=== PATIENT | male | born 2000 | race Two or more races ===

== ENCOUNTER 2023-05-09 12:05 | Emergency (ER) | payer BC, SELFPAY ==
[2023-05-09 12:12] VITALS: BP 142/74; PULSE 57; RESP 20; TEMP 36.9; O2SAT 99; BMI 23.7
--- NOTE | 2023-05-09 12:21 | XR_ITS ---
The [address] [address] Patient Name: FREDA NOLASCO MRN: [id number] date: 2000 Sex: M Assigned Patient Location: ER Current Patient Location: ER Accession/Order Number: [id number] Exam Date: 05/09/2023 12:27 Report Date: 05/09/2023 12:42 At the request of: BILL MORTON Procedure: XR chest 1V EXAMINATION: XR chest 1V HISTORY: chest pain , shortness of breath; intermittent symptoms for several weeks COMPARISON: No relevant comparison available. FINDINGS: LUNGS: No significant pulmonary parenchymal abnormalities. VASCULATURE: No increased pulmonary vasculature. PLEURA: No pneumothorax, effusion, or pleural thickening. CARDIAC: No cardiomegaly or cardiac silhouette abnormality. MEDIASTINUM: No visible mass or adenopathy. BONES: No fracture or visible bone lesion. OTHER: Negative. XR/XR chest 1V IMPRESSION: 1. Normal chest. Electronically authenticated by: LINDA ROTH Date: 05/09/2023 12:42
--- NOTE | 2023-05-09 12:22 | ECG_ITS ---
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
--- NOTE | 2023-05-09 13:32 | ED.CHESTPAI1 ---
Documented by User: VALERIE Rojo 05/09/23 14:31 HPI - Chest Pain General Chief Complaint: Chest Pain Stated Complaint: CHEST PAINS/SOB Time Seen by Provider: 05/09/23 13:11 Source: patient Mode of arrival: walk-in Limitations: no limitations History of Present Illness HPI narrative: patient is a 22-year-old male who presents to the emergency department for the evaluation of chest pain that has been intermittent for the last two weeks. He states he usually has an episode of chest pain daily or every other day. He states it typically lasts 5-10 minutes. He states sometimes he feels the chest pain when he is lying down, sometimes when he is moving and yesterday he felt chest pain while he was driving. He states when it occurs he does feel short of breath. He describes it as a tightness across the entire chest. He has had no fevers, chills, nausea, vomiting. He denies any peripheral edema to the arms or legs. He denies dizziness, syncope. He has no history of heart or lung problems. He states he starts football camp in a couple weeks and wanted to be evaluated. He is not a smoker. No recent surgeries or procedures. He has no chest pain at this time. Risk Factors Coronary artery disease risk factors: none Related Data Home Medications Medication Instructions Recorded Confirmed No Known Home Medications 05/09/23 05/09/23 Allergies Allergy/AdvReac Type Severity Reaction Status Date / Time No Known Drug Allergies Allergy Verified 05/09/23 12:14 Review of Systems ROS Constitutional Denies: fever or chills Ears, nose, mouth, and throat Denies: throat pain Cardiovascular Reports: chest pain; Denies: edema Respiratory Reports: shortness of breath; Denies: cough or coughing up blood Gastrointestinal Denies: nausea or vomiting Musculoskeletal Denies: back pain or neck pain Integumentary/Breast Denies: rash Endocrine Denies: excessive urination PFSH PFSH Social History Smoking status: Never smoker Exam Narrative Exam Narrative: Gen.: Awake, alert, in no distress Head: Normocephalic, atraumatic ENT: Moist mucous membranes Respiratory: No respiratory distress, lungs clear bilaterally Cardio: Regular rate and rhythm, no murmurs noted Extremities: Moves extremities equally, no pedal edema Psych: Normal mood and affect Neuro: No focal neuro deficit Skin: Warm, dry, intact Constitutional Vital Signs, click to edit/add: Last Vital Signs Temp 98.4 F 05/09/23 12:12 Pulse 57 L 05/09/23 12:12 Resp 20 05/09/23 12:12 BP 142/74 H 05/09/23 12:12 Pulse Ox 99 05/09/23 12:12 O2 Del Method Room Air 05/09/23 12:12 Course Vital Signs Vital signs: Vital Signs Temperature 98.4 F 05/09/23 12:12 Pulse Rate 57 L 05/09/23 12:12 Respiratory Rate 20 05/09/23 12:12 Blood Pressure 142/74 H 05/09/23 12:12 Pulse Oximetry 99 05/09/23 12:12 Oxygen Delivery Method Room Air 05/09/23 12:12 Temperature 98.4 F 05/09/23 12:12 Pulse Rate 57 L 05/09/23 12:12 Respiratory Rate 20 05/09/23 12:12 Blood Pressure 142/74 H 05/09/23 12:12 Pulse Oximetry 99 05/09/23 12:12 Oxygen Delivery Method Room Air 05/09/23 12:12 MDM - Chest Pain MDM Narrative Medical decision making narrative: patient with no PE risk factors, no active chest pain in the emergency department. His chest x-ray and EKG are unremarkable, labs studies are normal. Patient will be given a cardiology referral as needed, if he develops any dizziness, syncope he should be reevaluated for his chest pain. Return to the Emergency Room if symptoms change or worsen. Medical Records Data Attestation: I reviewed the patient's medical records. Lab Data Attestation: I reviewed the patient's lab results. Labs: Lab Results 05/09/23 Range/Units 13:39 WBC 6.3 (4.0-11.0) 10^3/uL RBC 5.41 (4.70-6.10) 10^6/uL Hgb 15.5 (14.0-18.0) g/dL Hct 46.1 (42.0-54.0) % MCV 85.2 (80.0-94.0) fL MCH 28.7 (25.9-34.0) pg MCHC 33.6 (29.9-35.2) g/dL RDW 11.9 (11.0-15.0) % Plt Count 302 (150-450) 10^3/uL MPV 9.4 L (9.5-13.5) fL Neut % (Auto) 55.8 (43.0-75.0) % Lymph % (Auto) 25.3 (20.5-60.0) % [place] % (Auto) 7.9 (1.7-12.0) % Eos % (Auto) 10.0 H (0.9-7.0) % Baso % (Auto) 0.8 (0.2-2.0) % Neut # (Auto) 3.5 (1.4-6.5) 10^3/uL Lymph # (Auto) 1.6 (1.2-3.8) 10^3/uL [place] # (Auto) 0.5 (0.3-0.8) 10^3/uL Eos # (Auto) 0.6 (0.0-0.7) 10^3/uL Baso # (Auto) 0.1 (0.0-0.1) 10^3/uL Abs Immat Gran (auto) 0.01 (0.00-0.03) 10^3/uL Imm/Tot Granulo (auto) 0.2 (0.0-0.5) % Sodium 136 (136-145) mmol/L Potassium 3.9 (3.5-5.1) mmol/L Chloride 101 (98-107) mmol/L Carbon Dioxide 29.0 (21.0-32.0) mmol/L Anion Gap 9.9 BUN 15.0 (7.0-18.0) mg/dL Creatinine 1.25 (0.70-1.30) mg/dL Est GFR ( Amer) >60 (>=60) Est GFR (Non-Af Amer) >60 (>=60) BUN/Creatinine Ratio 12.0 Glucose 97 (74-106) mg/dL Calcium 9.2 (8.5-10.1) mg/dL Total Bilirubin 0.4 (0.2-1.0) mg/dL AST 16 (15-37) U/L ALT 29 (16-63) U/L Alkaline Phosphatase 91 (46-116) U/L Total Protein 7.5 (6.4-8.2) g/dL Albumin 4.0 (3.4-5.0) g/dL Globulin 3.5 g/dL Albumin/Globulin Ratio 1.1 TSH 0.938 (0.358-3.740) uIU/mL Imaging Data Chest x-ray: Attestation: I have reviewed the pertinent imaging results. Radiologist's impression: Procedure: XR chest 1V EXAMINATION: XR chest 1V HISTORY: chest pain , shortness of breath; intermittent symptoms for several weeks COMPARISON: No relevant comparison available. FINDINGS: LUNGS: No significant pulmonary parenchymal abnormalities. VASCULATURE: No increased pulmonary vasculature. PLEURA: No pneumothorax, effusion, or pleural thickening. CARDIAC: No cardiomegaly or cardiac silhouette abnormality. MEDIASTINUM: No visible mass or adenopathy. BONES: No fracture or visible bone lesion. OTHER: Negative. IMPRESSION: 1. Normal chest. Electronically authenticated by: LINDA ROTH Date: 05/09/2023 12:42 ECG Data Attestation: I personally reviewed and interpreted this ECG as follows: (normal sinus rhythm at a rate of eighty-one, sinus arrhythmia noted with no acute ST elevation or ectopy. EKG reviewed by attending physician) ECG interpretation date: 05/09/23 ECG interpretation time: 13:35 Discharge Plan Discharge Chief Complaint: Chest Pain Clinical Impression: Chest pain Patient Disposition: Home, Self-Care Time of Disposition Decision: 14:29 Condition: Good Prescriptions / Home Meds: No Action No Known Home Medications Instructions: Chest Pain (ED) Additional Instructions: Follow up with [facility] cardiology ([phone]) if symptoms persist or worsen, if you develop dizziness or pass out with the chest pain, you need to be reevaluated Stand Alone Forms: Portal Instructions Referrals: Germaine Whitley MD [Primary Care Provider] - 1 week Discharge Date/Time: 05/09/23 14:55 Documented by User: Landen Purdy MD 05/09/23 19:22 HPI - Chest Pain General Chief Complaint: Chest Pain Stated Complaint: CHEST PAINS/SOB Time Seen by Provider: 05/09/23 13:11 Related Data Home Medications Medication Instructions Recorded Confirmed No Known Home Medications 05/09/23 05/09/23 Allergies Allergy/AdvReac Type Severity Reaction Status Date / Time No Known Drug Allergies Allergy Verified 05/09/23 12:14 [facility] Social History Smoking status: Never smoker Exam Constitutional Vital Signs, click to edit/add: Last Vital Signs Temp 98.4 F 05/09/23 12:12 Pulse 57 L 05/09/23 12:12 Resp 20 05/09/23 12:12 BP 142/74 H 05/09/23 12:12 Pulse Ox 99 05/09/23 12:12 O2 Del Method Room Air 05/09/23 12:12 Course Vital Signs Vital signs: Vital Signs Temperature 98.4 F 05/09/23 12:12 Pulse Rate 57 L 05/09/23 12:12 Respiratory Rate 20 05/09/23 12:12 Blood Pressure 142/74 H 05/09/23 12:12 Pulse Oximetry 99 05/09/23 12:12 Oxygen Delivery Method Room Air 05/09/23 12:12 Temperature 98.4 F 05/09/23 12:12 Pulse Rate 57 L 05/09/23 12:12 Respiratory Rate 20 05/09/23 12:12 Blood Pressure 142/74 H 05/09/23 12:12 Pulse Oximetry 99 05/09/23 12:12 Oxygen Delivery Method Room Air 05/09/23 12:12 MDM - Chest Pain MDM Narrative Medical decision making narrative: patient with no PE risk factors, no active chest pain in the emergency department. His chest x-ray and EKG are unremarkable, labs studies are normal. Patient will be given a cardiology referral as needed, if he develops any dizziness, syncope he should be reevaluated for his chest pain. Return to the Emergency Room if symptoms change or worsen. I, Dr Purdy, have reviewed the above progress note and course of action in the ER; agree with the above. I have personally seen and evaluated this patient, gone over history and physical, and discussed disposition and treatment plan with the patient. Lab Data Labs: Lab Results 05/09/23 Range/Units 13:39 WBC 6.3 (4.0-11.0) 10^3/uL RBC 5.41 (4.70-6.10) 10^6/uL Hgb 15.5 (14.0-18.0) g/dL Hct 46.1 (42.0-54.0) % MCV 85.2 (80.0-94.0) fL MCH 28.7 (25.9-34.0) pg MCHC 33.6 (29.9-35.2) g/dL RDW 11.9 (11.0-15.0) % Plt Count 302 (150-450) 10^3/uL MPV 9.4 L (9.5-13.5) fL Neut % (Auto) 55.8 (43.0-75.0) % Lymph % (Auto) 25.3 (20.5-60.0) % [place] % (Auto) 7.9 (1.7-12.0) % Eos % (Auto) 10.0 H (0.9-7.0) % Baso % (Auto) 0.8 (0.2-2.0) % Neut # (Auto) 3.5 (1.4-6.5) 10^3/uL Lymph # (Auto) 1.6 (1.2-3.8) 10^3/uL [place] # (Auto) 0.5 (0.3-0.8) 10^3/uL Eos # (Auto) 0.6 (0.0-0.7) 10^3/uL Baso # (Auto) 0.1 (0.0-0.1) 10^3/uL Abs Immat Gran (auto) 0.01 (0.00-0.03) 10^3/uL Imm/Tot Granulo (auto) 0.2 (0.0-0.5) % Sodium 136 (136-145) mmol/L Potassium 3.9 (3.5-5.1) mmol/L Chloride 101 (98-107) mmol/L Carbon Dioxide 29.0 (21.0-32.0) mmol/L Anion Gap 9.9 BUN 15.0 (7.0-18.0) mg/dL Creatinine 1.25 (0.70-1.30) mg/dL Est GFR ( Amer) >60 (>=60) Est GFR (Non-Af Amer) >60 (>=60) BUN/Creatinine Ratio 12.0 Glucose 97 (74-106) mg/dL Calcium 9.2 (8.5-10.1) mg/dL Total Bilirubin 0.4 (0.2-1.0) mg/dL AST 16 (15-37) U/L ALT 29 (16-63) U/L Alkaline Phosphatase 91 (46-116) U/L Total Protein 7.5 (6.4-8.2) g/dL Albumin 4.0 (3.4-5.0) g/dL Globulin 3.5 g/dL Albumin/Globulin Ratio 1.1 TSH 0.938 (0.358-3.740) uIU/mL Discharge Plan Discharge Chief Complaint: Chest Pain Clinical Impression: Chest pain Patient Disposition: Home, Self-Care Time of Disposition Decision: 14:29 Condition: Good Prescriptions / Home Meds: No Action No Known Home Medications Instructions: Chest Pain (ED) Additional Instructions: Follow up with [facility] cardiology ([phone]) if symptoms persist or worsen, if you develop dizziness or pass out with the chest pain, you need to be reevaluated Stand Alone Forms: Portal Instructions Referrals: Germaine Whitley MD [Primary Care Provider] - 1 week Discharge Date/Time: 05/09/23 14:55
[2023-05-09 13:49] LABS: Basophils Absolute Auto 0.1 10^3/uL (0.0-0.1); Basophils Percent Auto 0.8 % (0.2-2.0); Eosinophils Absolute Auto 0.6 10^3/uL (0.0-0.7); Hematocrit 46.1 % (42.0-54.0); Hemoglobin 15.5 g/dL (14.0-18.0); Immature Granulocytes Abs Auto 0.01 10^3/uL (0.00-0.03); Immature Granulocytes Pct Auto 0.2 % (0.0-0.5); Lymphocytes Absolute Auto 1.6 10^3/uL (1.2-3.8); Lymphocytes Percent Auto 25.3 % (20.5-60.0); Mean Corpuscular HGB Conc 33.6 g/dL (29.9-35.2); Mean Corpuscular Hemoglobin 28.7 pg (25.9-34.0); Mean Corpuscular Volume 85.2 fL (80.0-94.0); Mean Platelet Volume 9.4 fL (9.5-13.5); Monocytes Absolute Auto 0.5 10^3/uL (0.3-0.8); Monocytes Percent Auto 7.9 % (1.7-12.0); Neutrophils Absolute Auto 3.5 10^3/uL (1.4-6.5); Neutrophils Percent Auto 55.8 % (43.0-75.0); Platelet Count 302 10^3/uL (150-450); Red Blood Count 5.41 10^6/uL (4.70-6.10); Red Cell Distribution Width 11.9 % (11.0-15.0); White Blood Count 6.3 10^3/uL (4.0-11.0)
[2023-05-09 14:14] LABS: Alanine Aminotransferase 29 U/L (16-63); Albumin Globulin Ratio 1.1; Alkaline Phosphatase 91 U/L (46-116); Anion Gap 9.9; Aspartate Amino Transferase 16 U/L (15-37); Bilirubin Total 0.4 mg/dL (0.2-1.0); Calcium 9.2 mg/dL (8.5-10.1); Chloride 101 mmol/L (98-107); Estimated GFR (African America >60 (>=60); Estimated GFR (Non-African Ame >60 (>=60); Globulin 3.5 g/dL; Glucose 97 mg/dL (74-106); Potassium 3.9 mmol/L (3.5-5.1); Sodium 136 mmol/L (136-145); Thyroid Stimulating Hormone 0.938 uIU/mL (0.358-3.740); Total Protein 7.5 g/dL (6.4-8.2)
== END 2023-05-09 14:55 | disposition home or self-care (01) ==
PROVIDERS: Physician Assistant; Emergency Provider Emergency Medicine; PCP Family Medicine
DX: R07.9 Chest pain, unspecified (principal)
CPT/HCPCS: 36415; 71045; 80053; 84443; 85025; 93005; 99285